=== PATIENT | female | born 1995 | race American Indian/Alaskan Native ===

== ENCOUNTER 2018-11-23 14:09 | Emergency (ER) | payer MEDICAID, OTHER ==
[2018-11-23 14:41] VITALS: BP 139/99
--- NOTE | 2018-11-23 15:14 | Emergency Department Report ---
ED General Adult HPI - General Chief complaint: Psych Stated complaint: MH Time Seen by Provider: 11/23/18 15:13 Source: patient, EMS (ems notes not available at time of chart dictation), RN notes reviewed Mode of arrival: Ambulatory Limitations: No Limitations - History of Present Illness Initial comments: This is a 23-year-old female. The patient is not known to this provider previously. The patient is apparently brought to the hospital by EMS after a "nervous breakdown." Patient reports that a family member recently , patient was at a , and reports feeling upset. She currently denies headache, neck pain, chest pain, abdominal pain, shortness of breath, homicidality, suicidality. She does not have hallucinations, she does not have access to guns or firearms. She has no complaints at this time, and reports that she would like to go home. Severity scale (0 -10): 0 Improves with: none Worsens with: none Associated Symptoms: denies other symptoms - Related Data Home Medications Medication Instructions Recorded Confirmed Last Taken Benztropine [Cogentin] 1 mg PO BID 07/06/14 07/06/14 07/06/[address] [Depyan Dr] 500 mg PO QHS 07/06/14 07/06/14 07/05/14 chlorproMAZINE [Thorazine] 25 mg PO TID 07/06/14 07/06/14 07/06/14 Previous Rx's Medication Instructions Recorded Last Taken Type Fluconazole [Diflucan] 150 mg PO QDAY #1 tablet 07/06/14 Unknown Rx Nitrofurantoin [place]/M-Cryst 100 mg PO Q12HR #14 capsule 07/06/14 Unknown Rx [Macrobid] metroNIDAZOLE [Flagyl] 500 mg PO BID #14 tablet 07/06/14 Unknown Rx Allergies Allergy/AdvReac Type Severity Reaction Status Date / Time No Known Allergies Allergy Verified 07/06/14 18:27 ED Review of Systems ROS: Stated complaint: MH Other details as noted in HPI Constitutional: denies: fever Eyes: denies: eye discharge ENT: denies: throat pain Respiratory: denies: cough Cardiovascular: denies: chest pain Gastrointestinal: denies: abdominal pain Genitourinary: denies: dysuria Musculoskeletal: denies: back pain Skin: denies: lesions Neurological: denies: headache, weakness Psychiatric: denies: auditory hallucinations, visual hallucinations, homicidal thoughts, suicidal thoughts ED Past Medical Hx - Past Medical History Hx Psychiatric Treatment: Yes Additional medical history: paranoid schizophrenia, scoliosis - Surgical History Additional Surgical History: NETO - Social History Smoking Status: Never Smoker Substance Use Type: None - Medications Home Medications: Home Medications Medication Instructions Recorded Confirmed Last Taken Type Benztropine [Cogentin] 1 mg PO BID 07/06/14 07/06/14 07/06/[address] [Depakote Dr] 500 mg PO QHS 07/06/14 07/06/14 07/05/14 History Fluconazole [Diflucan] 150 mg PO QDAY #1 tablet 07/06/14 Unknown Rx Nitrofurantoin [place]/M-Cryst 100 mg PO Q12HR #14 capsule 07/06/14 Unknown Rx [Macrobid] chlorproMAZINE [Thorazine] 25 mg PO TID 07/06/14 07/06/14 07/06/14 History metroNIDAZOLE [Flagyl] 500 mg PO BID #14 tablet 07/06/14 Unknown Rx ED Physical Exam - General Limitations: No Limitations General appearance: alert, in no apparent distress - Head Head exam: Present: atraumatic, normocephalic - Eye Eye exam: Present: normal appearance, EOMI. Absent: nystagmus - ENT ENT exam: Present: normal exam, normal orophraynx, mucous membranes moist, normal external ear exam - Neck Neck exam: Present: normal inspection, full ROM. Absent: tenderness, meningis mus - Respiratory Respiratory exam: Present: normal lung sounds bilaterally. Absent: respiratory distress - Cardiovascular Cardiovascular Exam: Present: regular rate, normal rhythm, normal heart sounds. Absent: bradycardia, tachycardia, irregular rhythm, systolic murmur, diastolic murmur, rubs, gallop - GI/Abdominal GI/Abdominal exam: Present: soft. Absent: distended, tenderness, guarding, rebound, rigid, pulsatile mass - Extremities Exam Extremities exam: Present: normal inspection, full ROM, other (2+ pulses in the bilateral upper extremities. Moving 4 extremities spontaneously. Patient in no acute distress.) - Back Exam Back exam: Present: normal inspection, full ROM. Absent: tenderness, CVA tenderness (R), paraspinal tenderness, vertebral tenderness - Neurological Exam Neurological exam: Present: alert, oriented X3, CN II-XII intact, normal gait, other (Extraocular movements intact. Tongue midline. No facial droop. Facial sensation intact to light touch in the V1, V2, V3 distribution bilaterally. 5 and 5 strength in 4 extremities.. Sensation is intact to light touch in 4 extremities.). Absent: motor sensory deficit - Psychiatric Psychiatric exam: Absent: homicidal ideation, suicidal ideation - Skin Skin exam: Present: warm, dry, intact, normal color. Absent: rash ED Course Vital Signs 11/23/18 11/23/18 11/23/18 14:25 14:54 14:56 Temperature 97.8 F 97.8 F Pulse Rate 102 H 102 H Respiratory 18 18 18 Rate Blood Pressure 139/99 Blood Pressure 139/99 [Left] O2 Sat by Pulse 100 100 100 Oximetry ED Medical Decision Making - Lab Data Result diagrams: 11/23/18 15:02 11/23/18 15:02 Vital Signs 11/23/18 11/23/18 11/23/18 14:25 14:54 14:56 Temperature 97.8 F 97.8 F Pulse Rate 102 H 102 H Respiratory 18 18 18 Rate Blood Pressure 139/99 Blood Pressure 139/99 [Left] O2 Sat by Pulse 100 100 100 Oximetry Lab Results 11/23/18 11/23/18 11/23/18 Range/Units 15:02 15:02 15:02 WBC (4.5-11.0) K/mm3 RBC (3.65-5.03) M/mm3 Hgb (10.1-14.3) gm/dl Hct (30.3-42.9) % MCV (79-97) fl MCH (28-32) pg MCHC (30-34) % RDW (13.2-15.2) % Plt Count (140-440) K/mm3 Lymph % (Auto) (13.4-35.0) % Hill % (Auto) (0.0-7.3) % Eos % (Auto) (0.0-4.3) % Baso % (Auto) (0.0-1.8) % Lymph # (1.2-5.4) K/mm3 Hill # (0.0-0.8) K/mm3 Eos # (0.0-0.4) K/mm3 Baso # (0.0-0.1) K/mm3 Seg Neutrophils % (40.0-70.0) % Seg Neutrophils # (1.8-7.7) K/mm3 Sodium 136 L (137-145) mmol/L Potassium 3.7 (3.6-5.0) mmol/L Chloride 95.7 L (98-107) mmol/L Carbon Dioxide 26 (22-30) mmol/L Anion Gap 18 mmol/L BUN 7 (7-17) mg/dL Creatinine 0.8 (0.7-1.2) mg/dL Estimated GFR > 60 ml/min BUN/Creatinine Ratio 9 % Glucose 85 (65-100) mg/dL Calcium 9.2 (8.4-10.2) mg/dL Salicylates < 0.3 L (2.8-20.0) mg/dL Acetaminophen < 5.0 L (10.0-30.0) ug/mL Plasma/Serum Alcohol (0-0.07) % 11/23/18 11/23/18 Range/Units 15:02 15:02 WBC 10.6 (4.5-11.0) K/mm3 RBC 4.98 (3.65-5.03) M/mm3 Hgb 13.6 (10.1-14.3) gm/dl Hct 40.7 (30.3-42.9) % MCV 82 (79-97) fl MCH 27 L (28-32) pg MCHC 33 (30-34) % RDW 14.2 (13.2-15.2) % Plt Count 371 (140-440) K/mm3 Lymph % (Auto) 22.6 (13.4-35.0) % Hill % (Auto) 7.8 H (0.0-7.3) % Eos % (Auto) 1.0 (0.0-4.3) % Baso % (Auto) 0.5 (0.0-1.8) % Lymph # 2.4 (1.2-5.4) K/mm3 Hill # 0.8 (0.0-0.8) K/mm3 Eos # 0.1 (0.0-0.4) K/mm3 Baso # 0.1 (0.0-0.1) K/mm3 Seg Neutrophils % 68.1 (40.0-70.0) % Seg Neutrophils # 7.2 (1.8-7.7) K/mm3 Sodium (137-145) mmol/L Potassium (3.6-5.0) mmol/L Chloride (98-107) mmol/L Carbon Dioxide (22-30) mmol/L Anion Gap mmol/L BUN (7-17) mg/dL Creatinine (0.7-1.2) mg/dL Estimated GFR ml/min BUN/Creatinine Ratio % Glucose (65-100) mg/dL Calcium (8.4-10.2) mg/dL Salicylates (2.8-20.0) mg/dL Acetaminophen (10.0-30.0) ug/mL Plasma/Serum Alcohol < 0.01 (0-0.07) % - Medical Decision Making Differential diagnosis, including without limited to: Bereavement Assessment and plan: 23-year-old female, clinically sober at this time, with no acute medical or psychiatric complaints at this time, who is not homicidal, not suicidal, exhibits decision-making capacity, and does not endorse any acute medical complaints at this time. Her tachycardia has resolved on my physical examination, she is resting comfortably in her room, in no acute distress, and there does not appear to be an acute medical or psychiatric emergency at this time, the patient may be discharged to follow-up. Critical care attestation.: If time is entered above; I have spent that time in minutes in the direct care of this critically ill patient, excluding procedure time. ED Disposition Clinical Impression: Bereavement Disposition: DC-01 TO HOME OR SELFCARE Is pt being admited?: No Does the pt Need Aspirin: No Condition: Stable Instructions: Grief and Loss (ED) Additional Instructions: Follow-up with the primary care doctor or therapist as needed. Return to the ER right away with homicidality, suicidality, pain, confusion, new, worse or different symptoms. Referrals: [facility] [Provider Group] - as needed [facility] [Outside] - as needed
[2018-11-23 15:17] LABS: Basophils # (Auto) 0.1 K/mm3 (0.0-0.1); Basophils % (Auto) 0.5 % (0.0-1.8); Eosinophils # (Auto) 0.1 K/mm3 (0.0-0.4); Hematocrit 40.7 % (30.3-42.9); Hemoglobin 13.6 gm/dl (10.1-14.3); Lymphocytes # (Auto) 2.4 K/mm3 (1.2-5.4); Lymphocytes % (Auto) 22.6 % (13.4-35.0); Mean Corpuscular HGB Conc 33 % (30-34); Mean Corpuscular Volume 82 fl (79-97); Monocytes # (Auto) 0.8 K/mm3 (0.0-0.8); Monocytes % (Auto) 7.8 % (0.0-7.3); Platelet Count 371 K/mm3 (140-440); Red Blood Count 4.98 M/mm3 (3.65-5.03); Red Cell Distribution Width 14.2 % (13.2-15.2)
[2018-11-23 15:30] LABS: BUN/Creatinine Ratio 9; Blood Urea Nitrogen 7 mg/dL (7-17); Calcium 9.2 mg/dL (8.4-10.2); Hemolysis Index 2
== END 2018-11-23 15:51 | disposition home or self-care (01) ==
LOC: ED 14:09
DX: Z63.4 Disappearance and death of family member (principal); F20.0 Paranoid schizophrenia
CPT/HCPCS: 36415; 80048; 85025; 99284; G0480; 80320

== ENCOUNTER 2018-11-23 19:43 | Emergency (ER) | payer SELFPAY ==
--- NOTE | 2018-11-23 20:34 | Emergency Department Report ---
HPI - General Chief Complaint: Medical Clearance Time Seen by Provider: 11/23/18 20:28 - HPI HPI: 23-year-old -[place] female presents to the emergency department via police for what appears to be a mental health evaluation. There is a nonrelated older female who is currently with the patient as she had some running with her earlier in the day and is trying to help out. This visitor says that she was in her car in her apartment complex nearby when the patient came and started knocking on her window and asking to use the phone. The patient apparently called multiple different people including her brother. Shortly afterwards she urinated outside of this person's car. At first the visitor was going to leave her side but she spoke with the patient's brother and was made aware of the patient's psychiatric history. At some point the police came and were trying to bring her to the hospital but she did not want to go until this other person convinced her to and followed her in her own car. Allegedly the police reserves commander said to the ER staff that the patient was seen wandering through traffic at some point. The patient denies this and it is unknown whether or not the patient was trying to harm herself or just was putting herself into a risky situation. Patient has been to this facility in the past and she appears to have a history of paranoid schizophrenia and at that time was on Cogentin, Depakote, Thorazine. The patient made some abnormal claims through triage that appeared to be more like delusions. When the patient was asked very simple questions about the claim of abdominal pain and how she ended up in [place] when she lives in [facility], the patient gets very agitated, aggressive, and started cursing. Patient denies any history of psychiatric conditions. Apparently the patient's mother was contacted and is on her way to the emergency department. In reviewing the patient's chart, she was also here earlier in the day, brought in by EMS, and appeared to be evaluated for a "nervous breakdown." At that time the patient did not appear to meet criteria to be a 1013 and was discharged with the diagnosis of bereavement. ED Past Medical Hx - Past Medical History Hx Psychiatric Treatment: Yes Additional medical history: paranoid schizophrenia, scoliosis - Surgical History Additional Surgical History: NETO - Social History Smoking Status: Heavy Tobacco Smoker Substance Use Type: None - Medications Home Medications: Home Medications Medication Instructions Recorded Confirmed Last Taken Type Benztropine [Cogentin] 1 mg PO BID 07/06/14 07/06/14 07/06/[address] [Depakote Dr] 500 mg PO QHS 07/06/14 07/06/14 07/05/14 History Fluconazole [Diflucan] 150 mg PO QDAY #1 tablet 07/06/14 Unknown Rx Nitrofurantoin [place]/M-Cryst 100 mg PO Q12HR #14 capsule 07/06/14 Unknown Rx [Macrobid] chlorproMAZINE [Thorazine] 25 mg PO TID 07/06/14 07/06/14 07/06/14 History metroNIDAZOLE [Flagyl] 500 mg PO BID #14 tablet 07/06/14 Unknown Rx ED Review of Systems ROS: Stated complaint: MH Other details as noted in HPI Comment: Unobtainable due to pts medical conditions Physical Exam - Physical Exam Vital Signs: Vital Signs 11/23/18 11/23/18 19:46 19:54 Temperature 99.0 F 99 F Pulse Rate 104 H 100 H Respiratory 18 18 Rate Blood Pressure 136/101 136/101 O2 Sat by Pulse 99 100 Oximetry Physical Exam: GENERAL: The patient is well-developed well-nourished. HEENT: Normocephalic. Atraumatic. Patient has moist mucous membranes. EYES: Extraocular motions are intact. NECK: Supple. Trachea is midline. CHEST/LUNGS: Clear to auscultation. There is no respiratory distress noted. HEART/CARDIOVASCULAR: Regular. There is no tachycardia. There is no obvious murmur. ABDOMEN: Abdomen is soft, nontender. Patient has normal bowel sounds. There is no abdominal distention. SKIN: Skin is warm and dry. NEURO: The patient is awake, alert, and oriented. The patient is cooperative. The patient has no focal neurologic deficits. The patient has normal speech. MUSCULOSKELETAL: There is no tenderness or deformity. There is no limitation range of motion. There is no evidence of acute injury. PSYCH: Patient is easily agitated. She is not very forthcoming in answering questions. She appears slightly disorganized. ED Course Vital Signs 11/23/18 11/23/18 19:46 19:54 Temperature 99.0 F 99 F Pulse Rate 104 H 100 H Respiratory 18 18 Rate Blood Pressure 136/101 136/101 O2 Sat by Pulse 99 100 Oximetry - Reevaluation(s) Reevaluation #1: The patient will not answer any questions, unless she is prompted to do so by this other person who has been with her for the past hour or so. After only 1 or 2 questions, the patient started acting out, cursing, and saying that the questions are completely abnormal, even though they are directly related to the patient's complaints and an attempt to get a history. Along with the story given from the friend/visiter, and the information given to triage, the patient appears to be having some acute psychosis. At this time I do not believe that the patient would be safe should she choose to leave the hospital and does not have the normal decision making mental capacity. Therefore the patient has been made a 1013. 11/23/18 20:35 ED Medical Decision Making - Medical Decision Making The patient presents for a mental health evaluation and does appear to have some acute psychosis. The patient lives in [facility]. The patient's mother lives in [place] and came to the hospital to speak with us regarding her daughter. Earlier in the day the patient was seen here after arriving by EMS and had told the previous physician that she was dealing with the loss of a family member and here for a . Mom tells me that this is not true. Mom says she is unsure how and why she came to [place]. She reiterates that the patient has a psychiatric history and says that recently the patient has been acting abnormally. She also says that she thinks are heard that she was using some type of synthetic drugs. The patient does not appear to be able to care for herself in her current condition. She was seen wandering around in high traffic areas and apparently was calling her brother to get her own home address in saying that she was lost. During examination, the patient will not answer even the easiest questions before she gets very agitated and began cursing. For these reasons the patient appears to meet criteria to be made a 1013. She will be seen by the psych assessment team. Patient had blood work done earlier today that was unremarkable. I repeated a blood alcohol level which was negative. Urine drug screen was positive for marijuana. Otherwise urinalysis was negative. Vital signs stable throughout her ED course. Patient is medically cleared for psychiatric placement. - Differential Diagnosis bipolar, schizoaffective, schizophrenia, substance abuse Critical Care Time: No Critical care attestation.: If time is entered above; I have spent that time in minutes in the direct care of this critically ill patient, excluding procedure time. ED Disposition Clinical Impression: Acute psychosis Disposition: DC/TX-65 PSY HOSP/PSY UNIT Is pt being admited?: No Condition: Stable Referrals: PRIMARY CARE, [Primary Care Provider] - 3-5 Days Time of Disposition: 23:48
[2018-11-23] MEDS ORDERED: GEODON IM ONE (20:47)
[2018-11-23] MEDS ORDERED: WATER FOR INJ (PF) ONE (20:53)
[2018-11-23 21:44] LABS: Bacteria,Urine 1+ /HPF (Negative); Bilirubin,Urine NEG (Negative); Blood,Urine LG (Negative); Color,Urine Yellow (Yellow); Protein,Urine <15 mg/dL mg/dL (Negative); Urobilinogen,Urine < 2.0 mg/dL (<2.0)
[2018-11-23 23:05] LABS: Amphetamine Screen,Urine PRESUMPTIVE NEGATIVE; Benzodiazepines Screen,Urine PRESUMPTIVE NEGATIVE; Cocaine Screen,Urine PRESUMPTIVE NEGATIVE; Methadone Screen,Urine PRESUMPTIVE NEGATIVE; Opiate Screen,Urine PRESUMPTIVE NEGATIVE
[2018-11-23 23:23] LABS: Cannabinoid Screen,Urine PRESUMPTIVE POSITIVE
[2018-11-24] MEDS ORDERED: GEODON IM ONE ×3 (04:28→14:19)
[2018-11-24] MEDS ORDERED: WATER FOR INJ (PF) ONE ×2 (04:29→14:13)
--- NOTE | 2018-11-24 11:23 | Consultation ---
History of Present Illness - Reason for Consult Consult date: 11/24/18 Reason for consult: Mental Health Evaluation Requesting physician: EFREM DAMICO - Chief Complaint Chief complaint: "I'm good to go home" - History of Present Psychiatric Illness 23-year-old -[place]ill[place] female presents to the emergency department via police for bizarre behavior. Today the patient is calm, but disorganized during the assessment. She was asked several questions why she was brought to the ER, her answers were not logical. Per the record, the patient was seen earlier in the day, discharged or left AMA and returned via the police. She was asked about her mental health, she was somewhat evasive with her answers. She would not confirm or deny if she was trying to kill herself prior to her arrival to the hospital.. The patient stated that her brother just recently, but staff is saying that's not true. She is adamant that she is ok and should be discharged. She denies SI/HI's and AVH's. She denies alcohol consumption (etoh). Medications and Allergies Allergies Allergy/AdvReac Type Severity Reaction Status Date / Time No Known Allergies Allergy Verified 07/06/14 18:27 Home Medications Medication Instructions Recorded Confirmed Last Taken Type Benztropine [Cogentin] 1 mg PO BID 07/06/14 07/06/14 07/06/[address] [Carlitos Matthew] 500 mg PO QHS 07/06/14 07/06/14 07/05/14 History Fluconazole [Diflucan] 150 mg PO QDAY #1 tablet 07/06/14 Unknown Rx Nitrofurantoin [place]/M-Cryst 100 mg PO Q12HR #14 capsule 07/06/14 Unknown Rx [Macrobid] chlorproMAZINE [Thorazine] 25 mg PO TID 07/06/14 07/06/14 07/06/14 History metroNIDAZOLE [Flagyl] 500 mg PO BID #14 tablet 07/06/14 Unknown Rx Past psychiatric history - Past Medical History Past Medical History: No medical history Past Surgical History: No surgical history - past Psychiatric treatment and history psychiatric treatment history: Inpatient psy services per the patient. Unable to obtain a fam psy hx. - Social History Social history: lives with family Mental Status Exam - Vital signs Last Vital Signs Temp 98.3 F 11/24/18 10:36 Pulse 71 01/13/19 10:36 Resp 18 11/24/18 10:36 BP 112/75 11/24/18 10:36 Pulse Ox 100 11/24/18 10:36 - Exam Narrative exam: MSE: Appearance: calm Behavior: regular eye contact Speech: pressured speech Mood: somewhat evasive Affect: congruent to mood Thought Process: disorganized Thought Content: denies SI/HI's and AVH's, possibly delusional Motor Activity: sitting up in bed Cognition: A/O x 3 Insight: poor Judgment: poor Results Result Diagrams: 11/25/18 06:43 11/25/18 06:43 Abnormal lab results 11/24/18 Range/Units 08:29 Valproic Acid < 2.8 L (50-100) ug/mL All other labs normal. 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 Cannabis Use DO. Today the patient is calm, but disorganized during the assessment. DDx: Bipolar DO with psychosis, R/O Schzoaffective DO, R/O Substance Induced Mood DO Recommendation/Plan: Continue 1013 and start Geodon 20 mg PO BID for psychosis/mood. Discussed possible metabolic side effects of Geodon with the patient. Give Geodon with food. Dispo: The patient was referred to inpatient psy services. Stafedf with Dr Hope.
[2018-11-24] MEDS: GEODON PO SCH ×2 (12:55→22:26)
[2018-11-25 06:54] LABS: Hematocrit 39.6 % (30.3-42.9); Hemoglobin 12.9 gm/dl (10.1-14.3); Mean Corpuscular HGB Conc 33 % (30-34); Mean Corpuscular Volume 82 fl (79-97); Platelet Count 360 K/mm3 (140-440); Red Blood Count 4.85 M/mm3 (3.65-5.03); Red Cell Distribution Width 14.3 % (13.2-15.2)
[2018-11-25 07:15] LABS: Alanine Aminotransferase 12 units/L (7-56); Albumin 4.3 g/dL (3.9-5); BUN/Creatinine Ratio 14; Blood Urea Nitrogen 10 mg/dL (7-17); Hemolysis Index 2
[2018-11-25 08:00] VITALS: BP 126/96
[2018-11-25] MEDS: GEODON PO SCH (10:30)
--- NOTE | 2018-11-25 13:12 | Progress Note ---
Subjective - Reason for Consult Consult date: 11/25/18 Reason for consult: Psychiatry Follow-up - Chief Complaint Chief complaint: "I will do better" 23-year-old -Azerbaijani female presents to the emergency department via police for bizarre behavior. Today the patient is devi and cooperative during the assessment. Per collateral information from the patient's mother Pamela Rae at [phone], she stated that her daughter has a hx of marijuana use. She stated that her daughter reside in [place], [place]. She denies that her daughter tried to kill herself prior to her arrival to the ER. She stated that her daughter was "high" on drugs. The patient denies SI/HI's and AVH's. She stated that she will follow up with outpatient psy services when discharged. She denies any side effects of her medications. 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 Cannabis Use DO. Today the patient is calm and cooperative during the assessment. The patient is no threat to self. The patient's psychosis has resolved. DDx: Bipolar DO with psychosis, R/O Schzoaffective DO, R/O Substance Induced Mood DO Recommendation/Plan: Rescind 1013 and continue Geodon 20 mg PO BID. Discussed possible metabolic side effects of Geodon with the patient. Take Geodon with food. Discussed the importance to abstain from recreational drug use with the patient. Dispo: The patient can follow up with [facility] for outpatient psy services. Will staff with Dr Hope.
--- NOTE | 2018-11-25 13:13 | Progress Note ---
Subjective - Reason for Consult Consult date: 11/25/18 Reason for consult: Psychiatry Follow-up - Chief Complaint Chief complaint: "I will do better" 23-year-old -Kosovan female presents to the emergency department via police for bizarre behavior. Today the patient is calm, but disorganized during the assessment. Mental Status Exam - Vital signs Last Vital Signs Temp 97.5 F L 11/25/18 07:59 Pulse 107 H 11/25/18 07:59 Resp 18 11/25/18 08:00 BP 126/96 11/25/18 07:59 Pulse Ox 99 11/25/18 08:00
--- NOTE | 2018-11-25 13:48 | Emergency Department Report ---
Blank Doc - Documentation Documentation: I was asked to assess Ms. Emery for possible discharge. Patient was admitted to the emergency room for psychiatric evaluation for bizarre behavior. Patient today is calm and cooperative. Patient denied any suicidal or homicidal ideation. She denied any detail visual hallucination. Patient has been assessed by our psychiatric team and recommended to discharge patient home and to follow-up as an outpatient.
== END 2018-11-25 15:13 ==
LOC: ED 19:43 → EEVIPCON 19:43 → ED 11-25 15:13
DX: F23 Brief psychotic disorder (principal); F17.200 Nicotine dependence, unspecified, uncomplicated
CPT/HCPCS: 36415; 80053; 80164; 80307; 81001; 84703; 85027; 96372; 99284; G0480; J3486; 80320